=== PATIENT | female | born 1965 | race Caucasian/White ===

== ENCOUNTER 2020-02-23 14:16 | Emergency (ER) | payer OTHER ==
[~2020-02-23] VITALS: Ht 157.5 cm; Wt 73.5 kg
[2020-02-23 14:20] VITALS: BP_SYST 160
--- NOTE | 2020-02-23 16:00 | NUR ---
Patient to ER bed 4 to gown for evaluation. Side rails up.
--- NOTE | 2020-02-23 16:10 | NUR ---
Pt came to ER with L arm pain from work. She complains 10/10 shoulder pain, limited ROM, resting in gurney at this time
--- NOTE | 2020-02-23 16:20 | NUR ---
NISHANT Khan at bedside examining patient.
[2020-02-23] MEDS ORDERED: KETOROLAC TROMETHAMINE 30 MG VIAL IM ONE (16:30)
[2020-02-23] MEDS ORDERED: CYCLOBENZAPRINE HCL 10 MG TABLET (FLEXERIL) PO ONE (16:30)
--- NOTE | 2020-02-23 17:30 | NUR ---
Medication administered, will monitor pt reaction and reassess.
--- NOTE | 2020-02-23 18:12 | NUR ---
Patient given written and verbal discharge instructions and verbalizes understanding. ER MD discussed with patient the results and treatment provided. Patient in stable condition. ID arm band removed. Rx of Ibuprofen and Flexeril given. Patient educated on pain management and to follow up with PMD. Pain Scale 0. Opportunity for questions provided and answered. Medication side effect fact sheet provided.
[2020-02-23 18:25] VITALS: BP_SYST 134
== END 2020-02-23 18:12 | disposition home or self-care (01) ==
LOC: SED 14:16
DX: M25.512 Pain in left shoulder (principal); E11.9 Type 2 diabetes mellitus without complications; Z90.49 Acquired absence of other specified parts of digestive tract; W01.0XXA Fall on same level from slipping, tripping and stumbling without subsequent striking against object, initial encounter; Y93.89 Activity, other specified; Y92.89 Other specified places as the place of occurrence of the external cause; Y99.8 Other external cause status
CPT/HCPCS: 73030; 96372; 99283; J1885